=== PATIENT | female | born 1995 | race Caucasian/White ===

== ENCOUNTER 2016-11-27 16:08 | Emergency (ER) | payer MEDICAID ==
[~2016-11-27 16:08] MED LIST: FEOSOL325 M1 PO; FLONASE ALLERG9.9 ML NS; IBUPROFEN800 M1 PO; MOTRIN800 MG PO; PERCOCET 5-3251 EACH PO; PERCOCET 5/3251 TAB PO; PRENATAL1 EACH PO; PRENATAL1 TAB PO; TESSALON200 MG PO
[2016-11-27] MEDS ORDERED: PROGESTERONE (16:16)
[2016-11-27] MEDS ORDERED: PRENATAL TABLE1 EAC4 PO (16:17)
== END 2016-11-27 19:00 ==
LOC: EDMED 16:08
DX: O26.891 Other specified pregnancy related conditions, first trimester (principal); R10.2 Pelvic and perineal pain; Z3A.00 Weeks of gestation of pregnancy not specified